=== PATIENT | female | born 1950 | race Caucasian/White ===

== ENCOUNTER → 2017-03-04 | Outpatient (CLI) | payer MEDICARE, OTHER ==
[~2017-03-04] MED LIST: ASP81TEC PO; DILT240T6 PO; GADOBUTROL 10 MMOL/10 ML (GADAVIST) VIAL IV ONE; IBP200T PO; MULT-608 PO; PARO10TA2 PO
[2017-03-04 09:33] LABS: MEAN PLATELET VOLUME 9.4 FL (7.4-10.4); RED BLOOD COUNT 4.55 10^6/uL (4.35-5.85); RED CELL DISTRIBUTION WIDTH 13.9 % (10.0-14.5); WHITE BLOOD COUNT 5.2 10^3/uL (4.3-11.0)
[2017-03-04 10:34] LABS: BLOOD UREA NITROGEN 11 MG/DL (7-18); BUN/CREATININE RATIO 15; CREATININE SERUM 0.73 MG/DL (0.60-1.30); GFR ESTIMATED > 60
--- NOTE | 2017-03-04 12:18 | Diagnostic Imaging Report ---
PROCEDURE: US Carotid Duplex Bilateral. TECHNIQUE: Multiple real-time grayscale images were obtained over the carotid arteries in various projections bilaterally. Additional duplex Doppler and color Doppler images were also obtained. INDICATION: Pulsatile tinnitus. FINDINGS: Grayscale images demonstrate minimal intimal plaque in the carotid arteries. Color Doppler demonstrate patency of the common, internal and external carotid arteries. The vertebral arteries demonstrate antegrade flow on both sides. Peak systolic velocities in the right ICA are 71, 96 and 128 cm/s and on the left side 72, 79 and 110 cm/s. ICA/CCA ratios are up to 1.3 on the right and up to 1.2 on the left. IMPRESSION: Minimal plaque along the internal carotid arteries. The estimated underlying stenosis is in the range of 0-25% bilaterally. Dictated by: Dictated on workstation # [id number]
--- NOTE | 2017-03-04 12:36 | Diagnostic Imaging Report ---
PROCEDURE: MR angiography of the brain without the use of contrast. TECHNIQUE: 3D [id number] non contrast enhanced MR angiography of the head was performed. A source data was reformatted into rotating MIP projections. INDICATION: Pulsatile tinnitus. FINDINGS: The internal carotid arteries, the MCA and SIMON arteries are patent with no significant stenosis or occlusion. No aneurysm. The basilar artery, the posterior cerebral artery bilaterally are patent. The basilar artery is essentially continuation of the left vertebral artery. The right vertebral artery terminates into the right PICA and a tiny distal branch that contributes to the perfusion of the basilar artery. No aneurysm is seen. IMPRESSION: No high-grade stenosis, occlusion or aneurysm is seen in the central intracranial vessels. Dictated by: Dictated on workstation # [id number]
--- NOTE | 2017-03-04 14:49 | Diagnostic Imaging Report ---
PROCEDURE: MR imaging of the brain with and without contrast. TECHNIQUE: Multiplanar, multisequence MR imaging of the brain was performed with and without contrast. INDICATION: Tinnitus. 8 mL of Gadovist is administered intravenously. FINDINGS: There is no diffusion restriction to suggest an acute infarct or other diffusion abnormality. There are minimal periventricular and deep white matter hypodensities compatible with chronic microvascular ischemic changes. No mass effect, edema or enhancing masses seen in the brain or extra-axial space. The brainstem and the cerebellum appear unremarkable. The pituitary gland is normal in size. No hypothalamic or pineal region mass. No hydrocephalus. The internal auditory canals and inner ear structures appear symmetric. No cerebellopontine angle mass is identified. In the occipital region of the skull there is a 2 x 1.7 x 2.8 cm exophytic lesion to the left of the midline with low intensity margins. IMPRESSION: 1. Mild white matter findings are likely secondary to chronic microvascular ischemic changes, frequently seen at the patient's age. No acute infarct or enhancing mass. 2. A 2.8 cm exophytic lesion from the occipital aspect of the skull with well-defined low intensity margins may relate to an osteochondroma. Better evaluation with CT scan of the head is recommended. Dictated by: Dictated on workstation # [id number]
== END ==
LOC: RAD 09:14
PROVIDERS: ATTEND Otolaryngology Otolaryngology/Facial Plastic Surgery
DX: H93.A1 Pulsatile tinnitus, right ear (principal); I65.23 Occlusion and stenosis of bilateral carotid arteries; M89.9 Disorder of bone, unspecified
CPT/HCPCS: 36415; 70544; 70553; 82565; 84443; 84520; 85027; 85652; 93880

== ENCOUNTER → 2017-03-13 | Outpatient (CLI) | payer MEDICARE, OTHER ==
[~2017-03-13] MED LIST changes: +CATHETER FLUSH 10 ML SYR IV PRN; -GADOBUTROL 10 MMOL/10 ML (GADAVIST) VIAL IV ONE; +IOHEXOL 350 MG/ML 100 ML (OMNIPAQUE 350) VIAL IV ONE; +NS 100 ML (IVPB) BAG IV ONE
[2017-03-13 09:20] LABS: BLOOD UREA NITROGEN 15 MG/DL (7-18); BUN/CREATININE RATIO 20; CREATININE SERUM 0.74 MG/DL (0.60-1.30); GFR ESTIMATED > 60
--- NOTE | 2017-03-13 10:26 | Diagnostic Imaging Report ---
CLINICAL INDICATION: Patient with bump on occipital bone for 20 years. No complaints. No history of cancer. EXAM: Head CT without and with 80 cc of Omnipaque 350 IV contrast. Coronal reformatted images were created. COMPARISON: MRI of the brain/IACs dated 03/04/2017. FINDINGS: There is no evidence of acute cerebral infarct, intracranial hemorrhage, or gross mass effect. There is no abnormal IV contrast enhancement. There is normal barrera-white matter distinction. The brain parenchymal volume appears appropriate for patient's age. There is no significant midline shift or herniation. The lumbee of Neal vascular structures show no gross abnormality as visualized. There is no evidence of hydrocephalus. The basal cisterns are unremarkable. There is a pedunculated bony excrescence extending from the left of midline occipital bone and projects into the suboccipital soft tissue. This bony excrescence area measures 11 mm x 19 mm by roughly 28 mm. There is a marked cancellous type bone appearance centrally and a cortical bone in the periphery. This is suspected to represent an osteochondroma. There is no adjacent soft tissue fat stranding or adjacent soft tissue mass. Otherwise, the skull, extracranial soft tissue, and orbits are unremarkable. The paranasal sinuses are unremarkable. 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 2: Otherwise, unremarkable CT scan of the brain. Dictated by: Dictated on workstation # [id number]
== END ==
LOC: RAD 08:38
PROVIDERS: ATTEND Otolaryngology Otolaryngology/Facial Plastic Surgery
DX: H93.19 Tinnitus, unspecified ear (principal); D16.4 Benign neoplasm of bones of skull and face
CPT/HCPCS: 36415; 70470; 82565; 84520

== ENCOUNTER 2020-05-25 11:54 | Day surgery (SDC) | payer MEDICARE, OTHER ==
[~2020-05-25] VITALS: Ht 167.6 cm; Wt 83.5 kg
[~2020-05-25 11:54] MED LIST changes: -CATHETER FLUSH 10 ML SYR IV PRN; +CHOL200059 PO; +CYAN250T PO; +DILT240T10 PO; -IOHEXOL 350 MG/ML 100 ML (OMNIPAQUE 350) VIAL IV ONE; +MULT-567 PO; -NS 100 ML (IVPB) BAG IV ONE; +OMEG100032 PO; +PARO20TA5 PO; +UBID100C17 PO
[2020-05-25] MEDS ORDERED: LACTATED RINGERS 1,000 ML IV ONE (11:57)
--- NOTE | 2020-05-25 12:06 | Progress Note-Pre Operative ---
Pre-Operative Progress Note H&P Reviewed The H&P was reviewed, patient examined and no changes noted. Date Seen by Provider: May 25, 2020 Time Seen by Provider: 12:00 Date H&P Reviewed: May 25, 2020 Time H&P Reviewed: 12:00 Pre-Operative Diagnosis: screening JOSE ANGEL Rodriguez MD May 25, 2020 12:06
--- NOTE | 2020-05-25 12:07 | Discharge Inst-Surgical ---
D/C Lap Instructions-HOA Follow Up Activity as tolerated High Fiber Diet 25g or more per day Avoid Alcohol, Caffeine, Spicy Ayden and Acid foods. Drink 64 fluid oz or more of fluids per day. Symptoms to Report: Fever over 101 degree F, Nausea/Vomiting If any problems/questions: Contact your physician or go to Emergency Room JOSE ANGEL CAMARA MD May 25, 2020 12:07
[2020-05-25 12:10] VITALS: BP 135/73
[2020-05-25] MEDS ORDERED: LACTATED RINGERS 1,000 ML IV PRN (12:15)
[2020-05-25] MEDS ORDERED: LIDOCAINE JELLY 2% 6 ML SYRINGE MM PRN (12:15)
[2020-05-25] MEDS ORDERED: ONDANSETRON 4 MG/2 ML (SDV) Z0FRAN IVP PRN (12:15)
[2020-05-25] MEDS ORDERED: ACETAMINOPHEN 325 MG TABLET PO PRN (12:15)
[2020-05-25] MEDS ORDERED: morphine INJ 10 MG/ML 1ML (SYR OR VIAL) IVP PRN ×2 (12:15)
[2020-05-25] MEDS ORDERED: PROPOFOL INJECTION 50 ML IV ONE (12:55)
[2020-05-25] MEDS ORDERED: LIDOCAINE JELLY 2% 6 ML SYRINGE ONE (13:14)
[2020-05-25] MEDS ORDERED: MIDAZOLAM 2 MG/2 ML (VERSED) VIAL ONE (13:15)
[2020-05-25 13:40] VITALS: BP 104/53
--- NOTE | 2020-05-25 13:43 | Anesthesia-General Post-Op ---
MAC Patient Condition Mental Status/LOC: Same as Preop Cardiovascular: Satisfactory Nausea/Vomiting: Absent Respiratory: Satisfactory Pain: Controlled Complications: Absent Post Op Complications Complications None Follow Up Care/Instructions Patient Instructions None needed. Anesthesiology Discharge Order Discharge Order Patient is doing well, no complaints, stable vital signs, no apparent adverse anesthesia problems. No complications reported per nursing. AJ KNOWLES CRNA May 25, 2020 13:43
[2020-05-25 14:10] VITALS: BP 132/59
[2020-05-25 14:20] VITALS: BP 132/59
--- NOTE | 2020-05-25 14:29 | Progress Note-Post Operative ---
Post-Operative Progess Note Surgeon (s)/Editor House Organ (s) Surgeon JOSE ANGEL CAMARA MD Editor House Organ: none Pre-Operative Diagnosis screening colo Post-Operative Diagnosis chronic stage 2-3 ext and int hemorrhoids. Procedure & Operative Findings Date of Procedure 05/25/20 Procedure Performed/Findings colonoscopy. Anesthesia Type mac Estimated Blood Loss Estimated blood loss (mL): minimal Specimens/Packing Specimens Removed none JOSE ANGEL CAMARA MD May 25, 2020 14:29
--- OUTSIDE RECORDS SUMMARY | 2020-05-25 15:44 | XMS REPORT ---
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 Encounters Encounter Date Encounter Type Encounter Diagnosis Care Provider Facility Start: Patient encounter JOSE ANGEL CAMARA MD [facility] 05-25-2020 procedure [facility] Start: Discharged Recurring MD MANJU [facility] 05-22-2020 Work Phone: [place] [phone] End: 05-22-2020 Start: Patient encounter JOSE ANGEL CAMARA MD [facility] 05-22-2020 [facility] End: 05-22-2020 Start: Patient encounter JOSE ANGEL CAMARA MD [facility] 05-17-2020 [facility] Start: Patient encounter [facility] 08-02-2019 procedure [facility] ([id number]) Start: Patient encounter ELVIA LOVELL MD Not Avail able ([id number]) 03-13-2017 procedure Start: Patient encounter ELVIA LOVELL MD [facility] 03-13-2017 [facility] Start: Patient encounter ELVIA LOVELL MD Not Avail able ([id number]) 03-04-2017 procedure Start: Patient encounter ELVIA LOVELL MD [facility] 03-04-2017 [facility] Start: Patient encounter VICTORIANO STANTON Not Karen ilable ([id number]) 05-06-2012 procedure Start: Patient encounter VICTORIANO WILD MD, FACC Not [facility] ([id number]) 05-05-2012 procedure Start: Patient encounter ELVIA LOVELL MD Not Avail able ([id number]) 02-24-2012 procedure End: 02-25-2012 Encounter for other JOSE ANGEL CAMARA MD [facility] examination ([id number]) Medical Equipment The data below is from unstructured sourcesNo Medical Equipment Information available Goals Date Patient Goal Desired Activity/St ate Immunizations The data below is from unstructured sourcesNo Immunization Information Available Interventions No Information Medications Current Medications Medication Drug Dates Sig Sig (Original) Class(es) (Normalized) Cholecalciferol Vitamin D Cholecalciferol (Vi tamin D3) Active 50 (1 source) ORAL Daily coenzyme q10 100 mg oral Ubidecarenone Active 100 ORAL Daily capsule (1 source) 24 hr dilTIAZem Calcium Diltiazem Hcl Activ e 240 ORAL Daily hydrochloride 240 mg Channel extended release oral Virgie tablet (2 sources) End: 05-17-2020 Diltiazem Hcl Discontinued 240 ORAL Daily May 17, 2020 Multivitamin preparation Multivitamin Active 1 OR AL Daily (1 source) [place]-3/Dha/Epa/Fish Oil [place]-3/Dha/Epa/Fish Oil Active 1000 (1 source) ORAL Daily PARoxetine hydrochloride Serotonin Paroxetine Hc l Active 20 ORAL Daily 20 mg oral tablet Reuptake (2 sources) Inhibitor End: 05-17-2020 Paroxetine Hcl Discontinued 10 ORAL Daily May 17, 2020 vitamin b 12 0.25 mg Vitamin Cyanocobalamin (V itamin B-12) Active 250 oral tablet B12 ORAL Daily (1 source) Completed/Discontinued Medications Medication Drug Dates Sig Sig (Original) Class(es) (Normalized) Aspirin Platelet End: Aspirin Discont inued 81 ORAL Daily May (1 source) Aggregatio 05-17-20202019 n Inhibitor, Nonsteroid al Anti-infla mmatory Drug Ibuprofen Nonsteroid End: Ibuprofen Disco ntinued 400 ORAL Twice A (1 source) al 05-17-2020 Day May 17 020 Anti-infla mmatory Drug Multivitamins End: Multivitamins Disco ntinued 1 ORAL Daily (1 source) 05-17-2020 May 17, 2020 Payers Date Payer Normalized Payer [id number] Plan of Treatment Date Care Activity Detail Author Coronavirus Ab [place] [facility] [Units/volume] in [facility] ([id number]) Problems Active Problems Problem Problem Date Last Documented Episodic/Chr Provider Classificati Recorded Date onic on Disorders of Other and unspecified Chronic ALI SANTOYO MMAD lipid hyperlipidemia [facility] metabolism (2 sources) Immunization Contact with and (suspected) 05-24-2020 Episodic TAKAAKI KIDO s and exposure to other viral MD screening communicable diseases for infectious disease (2 sources) Malaise and Other fatigue ; Translations: 05-23-2020 Episodic ALI TORRI fatigue [Other malaise and fatigue] [facility] (7 sources) Occlusion or Occlusion and stenosis of bilateral 05-23-2020 Ch ronemil GAN stenosis of carotid arteries [place] precerebral arteries (5 sources) Other and Benign neoplasm of bones of skull 05-23-2020 Episo dic ELVIA unspecified and face [place] benign neoplasm (3 sources) Other bone Disorder of bone, unspecified 05-23-2020 Episodic ELVIA disease and [place] musculoskele scott deformities (5 sources) Other ear Pulsatile tinnitus, right ear 05-23-2020 Episodic ELVIA and sense [place] organ disorders (5 sources) Other ear Tinnitus, unspecified ear 05-23-2020 Episodic ELVIA and sense [place] organ disorders (3 sources) Other lower Other respiratory abnormalities Episodic ALI TORRI respiratory [facility] disease (2 sources) Residual Obstructive sleep apnea Chronic ERAN AEL codes; (adult)(pediatric) [place] unclassified (1 source) Thyroid Hypothyroidism, unspecified 05-23-2020 Chronic ELVIA disorders [place] (5 sources) Past or Other Problems Problem Problem Date Last Documented Episodic/Chr Provider Classificati Recorded Date onic on Other Other specified symptoms and signs Episodic ELVIA circulatory involving the circulatory and [place] disease respiratory systems (1 source) Procedures The data below is from unstructured sourcesNo procedure information available. Results Test Name Value Interpreta Reference Facilit Date tion Range y Time not yet categorized on 2020-05-25 NAME: KARLI SALAZAR Michelle ~MED REC#: [id number] Invalid PENDING ~ ~PHYSICIAN: AJ Rico FISH CUTTER ~MAC ~Patient tion Code N [facility] Condition ~Mental Status/LOC: Same as Preop ( ) ~Cardiovascular: Satisfactory ~Nausea/Vomiting: Absent ~Respiratory: Satisfactory ~Pain: Controlled ~Complications: Absent ~ ~Post Op Complications ~Complications ~None ~ ~F ollow Up Care/Instructions ~Patient Instructi ons ~None needed. ~ ~Anesthesiology Dischar ge Order ~Discharge Order ~Patient is jeff arreaga well, no complaints, stable vital signs , no apparent adverse anesthesia problems. ~ ~No complications reported per nursing. ~ ~ ~ ~AJ KNOWLES CRNA May 25, 2020 13 :43 ~ ~ ~<Created by AJ KNOWLES FISH CUTTER> ~<Electronically signed by AJ SELLERS FISH CUTTER> 05/25/20 1343 ~ ~ NAME: KARLI SALAZAR ~MED REC#: [id number] Invalid PENDING ~ ~PHYSICIAN: JOSE ANGEL Smith MD ~Post-Operative Progess Note tion Code N [facility] ~Surgeon (s)/Director Of Sports Medicine (s) ~Surgeon ~JOSE ANGEL (0000 0) [place] ~Director Of Sports Medicine: none ~ ~Pre-Operati ve Diagnosis ~screening colo ~ ~Post-Opera tive Diagnosis ~ ~chronic stage 2-3 ext and int hemorrhoids. ~ ~Procedure Operative Fin dings ~Date of Procedure ~05/25/20 ~Procedure Performed/Findings ~colonoscopy. ~Anest hesia Type ~mac ~ ~Estimated Blood Loss ~Marley mated blood loss (mL): minimal ~ ~Specimens/P acking ~Specimens Removed ~none ~ ~ ~ ~LEONARD CAMARA MD May 25, 2020 14:29 ~ ~ ~<Created by JOSE ANGEL CAMARA MD> ~<Electronically mireya d by JOSE ANGEL CAMARA MD> 05/25/20 1429 ~ ~ laboratory on 2020-05-22 Coronavirus Ab Qn Negative Invalid Negative PENDING 05-22 (S) Interpreta LOCATIO 020 tion Code N KHS 04:00-0 ([id number]) 400 Social History Date Type Detail Facility Start: Tobacco smoking status NHIS Never smoked tobac co [place] [facility] 05-17-2020 (finding) [facility] ([id number]) Start: Rarely Uses [place] [facility] 05-17-2020 [facility] ([id number]) Start: Never a Smoker [place] [facility] 05-17-2020 [facility] ([id number]) Start: No [place] [facility] 05-17-2020 [facility] ([id number]) Start: Sex Assigned At Female Isauro n [facility] 1950 [facility] ([id number]) Vital Signs The data below is from unstructured sources Vital Reading Result Col lection Date/Time Functional Status The data below is from unstructured sourcesNo Functional Status information available Mental Status The data below is from unstructured sourcesNo Mental Status Information Available Evaluation note Note Date & Note Facility Type Evaluation No Assessments Information Available A scension Via note [facility] ([id number]) Clinical Note Note Date & Note Facility Type Note NAME: KARLI SALAZAR ~MED REC#: [id number] ~ACCOUNT#: PENDING LOCATION [facility] [id number] ~PHYSICIAN: JOSE ANGEL CAMARA MD ~Pre-Operati ve Progress ([id number]) Note ~H P Reviewed ~The H P was reviewe d, patient examined and no changes noted. ~Date Seen by Provider: May 25, 2020 ~Time Seen by Provider: 12:00 ~Date H P Reviewed: May 25, 2020 ~Time H P Reviewed: 12:00 ~Pre-Operative Diagnosi s: screening colo ~ ~ ~ ~JOSE ANGEL CAMARA MD May 25, 2020 12:06 ~ ~ ~<Created by JOSE ANGEL CAMARA MD> ~<Electronically signed by JOSE ANGEL CAMARA MD> 05/25/20 1206 ~ ~ Advance Directives Advance Directive Response Recorded Date/Time Advance Directives No Ju ly 2019 2:41pm Organ Donor Yes April 9:04am Resuscitation Status Full Code May 17, 2020 2:41pm Additional Source Comments This clinical document has been generated using [employer] software that has been certified by the Office of the National Coordinator for Health Information Technology (ONC 15.99.04.3023.[id number]) and the National Committee for Certified Surgical Technician (NCQA, as an eMeasure certified technology). FOR RECORDS PERTAINING TO PATIENTS WHO ARE OR HAVE BEEN ENROLLED IN A CHEMICAL D EPENDENCY/SUBSTANCE ABUSE PROGRAM, SOME INFORMATION MAY BE OMITTED. This clinica l summary was aggregated from multiple sources. Caution should be exercised in using it in the provision of clinical care. This summary normalizes information from multiple sources, and as a consequence, information in this document may ma terially change the coding, format and clinical context of patient data. In nargis tion, data may be omitted in some cases. CLINICAL DECISIONS SHOULD BE BASED ON T HE PRIMARY CLINICAL RECORDS. [facility] [employer] [facility]. provides no warranty or guara ntee of the accuracy or completeness of information in this document.The followi ng information is based on time limited clinical information
--- OUTSIDE RECORDS SUMMARY | 2020-05-25 15:45 | XMS REPORT | Continuity of Care Document ---
Author Organization Unknown Address Unknown Phone Unavailable Allergies Active Description Code Type Severity Reaction Onset Reported/Identified Relationship to Patient Clinical Status Yes No Known Drug Allergies [id number] Drug Allergy Unknown N/A 05/06/2012 Medications There is no data. Problems Date Dx Coded Attending Type Code Diagnosis Diagnosed By 10/15/1021 HOA KAPLAN, JOSE ANGEL Ot Z20.82 8 CONTACT W AND EXPOSURE TO OTH VIRAL COMM 02/25/2012 Ot 327.23 OBS TRUCTIVE SLEEP APNEA (ADULT) (PEDIATR 05/22/2015 Ot 272.4 05/22/2015 Ot 780.79 05/22/2015 Ot 786.09 05/22/2015 Ot 272.4 05/22/2015 Ot 780.79 05/22/2015 Ot 786.09 02/27/2017 Ot 272.4 HYPE RLIPIDEMIA NEC/NOS 02/27/2017 Ot 780.79 OTH MALAISE FATIGUE 02/27/2017 Ot 786.09 RES PIRATORY ABNORM NEC 02/27/2017 Ot 272.4 HYPE RLIPIDEMIA NEC/NOS 02/27/2017 Ot 780.79 OTH MALAISE FATIGUE 02/27/2017 Ot 786.09 RES PIRATORY ABNORM NEC 03/04/2017 Ot 272.4 HYPE RLIPIDEMIA NEC/NOS 03/04/2017 Ot 780.79 OTH MALAISE FATIGUE 03/04/2017 Ot 786.09 RES PIRATORY ABNORM NEC 03/04/2017 Ot 272.4 HYPE RLIPIDEMIA NEC/NOS 03/04/2017 Ot 780.79 OTH MALAISE FATIGUE 03/04/2017 Ot 786.09 RES PIRATORY ABNORM NEC 03/04/2017 ELVIA LOVELL MD Ot R09.89 OTH SYMPTOMS AND SIGNS INVOLVING THE CIR 03/19/2017 ELIVA LOVELL MD Ot D16 .4 BENIGN NEOPLASM OF BONES OF SKULL AND FA 03/19/2017 ELVIA LOVELL MD Ot H93.19 TINNITUS, UNSPECIFIED EAR 04/06/2017 ELVIA LOVELL MD Ot D16 .4 BENIGN NEOPLASM OF BONES OF SKULL AND FA 04/06/2017 ELVIA LOVELL MD P Ot H93.19 TINNITUS, UNSPECIFIED EAR 04/17/2017 ELVIA LOVELL MD P Ot E03 .9 HYPOTHYROIDISM, UNSPECIFIED 04/17/2017 ELVIA LOVELL MD P Ot H93.A1 PULSATILE TINNITUS, RIGHT EAR 04/17/2017 ELVIA LOVELL MD P Ot I65.23 OCCLUSION AND STENOSIS OF BILATERAL DIAZ 04/17/2017 ELVIA LOVELL MD P Ot M89 .9 DISORDER OF BONE, UNSPECIFIED 04/17/2017 ELVIA LOVELL MD P Ot R53.83 OTHER FATIGUE 05/12/2017 ELVIA LOVELL MD P Ot E03 .9 HYPOTHYROIDISM, UNSPECIFIED 05/12/2017 ELVIA LOVELL MD P Ot H93.A1 PULSATILE TINNITUS, RIGHT EAR 05/12/2017 ELVIA LOVELL MD P Ot I65.23 OCCLUSION AND STENOSIS OF BILATERAL DIAZ 05/12/2017 ELVIA LOVELL MD P Ot M89 .9 DISORDER OF BONE, UNSPECIFIED 05/12/2017 ELVIA LOVELL MD P Ot R53.83 OTHER FATIGUE 05/11/2020 ELVIA LOVELL MD P Ot E03 .9 HYPOTHYROIDISM, UNSPECIFIED 05/11/2020 ELVIA LOVELL MD P Ot H93.A1 PULSATILE TINNITUS, RIGHT EAR 05/11/2020 ELVIA LOVELL MD P Ot I65.23 OCCLUSION AND STENOSIS OF BILATERAL DIAZ 05/11/2020 ELVIA LOVELL MD P Ot M89 .9 DISORDER OF BONE, UNSPECIFIED 05/11/2020 ELVIA LOVELL MD P Ot R53.83 OTHER FATIGUE 05/11/2020 ELVIA LOVELL MD P Ot D16 .4 BENIGN NEOPLASM OF BONES OF SKULL AND FA 05/11/2020 ELVIA LOVELL MD Ot H93.19 TINNITUS, UNSPECIFIED EAR 05/21/2020 JOSE ANGEL CAMARA MD Ot Z01.81 8 ENCOUNTER FOR OTHER PREPROCEDURAL EXAMIN 05/22/2020 JOSE ANGEL CAMARA MD Ot Z01.81 8 ENCOUNTER FOR OTHER PREPROCEDURAL EXAMIN 05/22/2020 JOSE ANGEL CAMARA MD Ot Z01.81 8 ENCOUNTER FOR OTHER PREPROCEDURAL EXAMIN 05/22/2020 ELVIA LOVELL MD Ot E03 .9 HYPOTHYROIDISM, UNSPECIFIED 05/22/2020 ELVIA LOVELL MD P Ot H93.A1 PULSATILE TINNITUS, RIGHT EAR 05/22/2020 ELVIA LOVELL MD P Ot I65.23 OCCLUSION AND STENOSIS OF BILATERAL DIAZ 05/22/2020 ELVIA LOVELL MD Ot M89 .9 DISORDER OF BONE, UNSPECIFIED 05/22/2020 ELVIA LOVELL MD Ot R53.83 OTHER FATIGUE 05/22/2020 ELVIA LOVELL MD Ot D16 .4 BENIGN NEOPLASM OF BONES OF SKULL AND FA 05/22/2020 ELVIA LOVELL MD Ot H93.19 TINNITUS, UNSPECIFIED EAR 05/22/2020 JOSE ANGEL CAMARA MD Ot Z01.81 8 ENCOUNTER FOR OTHER PREPROCEDURAL EXAMIN 05/22/2020 JOSE ANGEL CAMARA MD Ot Z01.81 8 ENCOUNTER FOR OTHER PREPROCEDURAL EXAMIN 05/23/2020 ELVIA LOVELL MD Ot E03 .9 HYPOTHYROIDISM, UNSPECIFIED 05/23/2020 ELVIA LOVELL MD Ot H93.A1 PULSATILE TINNITUS, RIGHT EAR 05/23/2020 ELVIA LOVELL MD Ot I65.23 OCCLUSION AND STENOSIS OF BILATERAL DIAZ 05/23/2020 ELVIA LOVELL MD Ot M89 .9 DISORDER OF BONE, UNSPECIFIED 05/23/2020 ELVIA LOVELL MD Ot R53.83 OTHER FATIGUE 05/23/2020 ELVIA LOVELL MD Ot D16 .4 BENIGN NEOPLASM OF BONES OF SKULL AND FA 05/23/2020 ELVIA LOVELL MD Ot H93.19 TINNITUS, UNSPECIFIED EAR 05/24/2020 ELVIA LOVELL MD Ot E03 .9 HYPOTHYROIDISM, UNSPECIFIED 05/24/2020 ELVIA LOVELL MD Ot H93.A1 PULSATILE TINNITUS, RIGHT EAR 05/24/2020 ELVIA LOVELL MD Ot I65.23 OCCLUSION AND STENOSIS OF BILATERAL DIAZ 05/24/2020 ELVIA LOVELL MD Ot M89 .9 DISORDER OF BONE, UNSPECIFIED 05/24/2020 ELVIA LOVELL MD Ot R53.83 OTHER FATIGUE 05/24/2020 ELVIA LOVELL MD Ot D16 .4 BENIGN NEOPLASM OF BONES OF SKULL AND FA 05/24/2020 ELVIA LOVELL MD Ot H93.19 TINNITUS, UNSPECIFIED EAR Procedures There is no data. Results Test Result Range Automated blood complete blood count (he mogram) panel - 03/04/17 09:29 Blood leukocytes automated count (number/volume) 5.2 10*3/uL 4.3-11.0 Blood erythrocytes automated count (number/volume) 4.55 10*6/uL 4.35-5.85 Venous blood hemoglobin measurement (mass/volume) 13.4 g/dL 11.5-16.0 Blood hematocrit (volume fraction) 40 % 35-52 Automated erythrocyte mean corpuscular volume 88 [ foz_us] 80-99 Automated erythrocyte mean corpuscular h emoglobin (mass per erythrocyte) 30 pg 25-34 Automated erythrocyte mean corpuscular h emoglobin concentration measurement (mass/volume) 34 g/dL 32-36 Automated erythrocyte distribution width ratio 13. 9 % 10.0- 14.5 Automated blood platelet count (count/volume) 333 10*3/uL 130-400 Automated blood platelet mean volume measurement 9.4 [foz_us] 7.4-10.4 Erythrocyte sedimentation rate by evelin gren method - 03/04/17 09:29 Erythrocyte sedimentation rate by westergren method 10 mm 0- 30 THYROID STIMULATING HORMONE - 03/04/17 0 9:29 THYROID STIMULATING HORMONE 1.62 u[iU]/mL 0.35-4.94 [id number] - 03/04/17 09:29 Serum or plasma urea nitrogen measurement (mass/volume ) 11 mg/dL 7-18 Serum or plasma creatinine measurement (mass/volume) 0.73 mg/dL 0.60-1.30 Serum or plasma urea nitrogen/creatinine mass ratio 15 NRG Serum or plasma creatinine measurement w ith calculation of estimated glomerular filtration rate > NRG [id number] - 03/13/17 08:58 Serum or plasma urea nitrogen measurement (mass/volume ) 15 mg/dL 7-18 Serum or plasma creatinine measurement (mass/volume) 0.74 mg/dL 0.60-1.30 Serum or plasma urea nitrogen/creatinine mass ratio 20 NRG Serum or plasma creatinine measurement w ith calculation of estimated glomerular filtration rate > NRG Coronavirus SARS-CoV-2 SO 2018 - 0 08:00 Coronavirus Ab [Units/volume] in Serum Negative Negative Encounters ACCT No. Visit Date/Time Discharge Status Pt. Type Provider Facility Loc./Unit Complaint [id number] 05/22/2020 05:40:00 020 10:22:00 DIS Outpatient JOSE ANGEL CAMARA MD Via [facility] SCREENING [id number] 03/13/2017 08:38:00 017 23:59:59 CLS Outpatient ELVIA LOVELL MD [facility] RAD PULSATILE TINNITIS [id number] 03/04/2017 09:14:00 017 23:59:59 CLS Outpatient ELVIA LOVELL MD [facility] RAD RT PULSATILE TINNITUS [id number] 05/25/2020 13:00:00 P EN Preadmit JOSE ANGEL CAMARA MD [facility] ENDO SCREENING [id number] 05/06/2012 07:01:00 Document Registration [id number] 05/05/2012 12:40:00 Document Registration [id number] 02/24/2012 19:30:00 Document Registration
--- NOTE | 2020-05-25 23:53 | OPERATIVE REPORT ---
DATE OF SERVICE: 05/25/2020 ATTENDING PRIMARY CARE PHYSICIAN: Jerome Goodwin MD PREOPERATIVE DIAGNOSIS: Screening colonoscopy. POSTOPERATIVE DIAGNOSES: Chronic between stage II and III external and internal hemorrhoids. The remainder of the rectum and colon were normal. PROCEDURE: Colonoscopy. SURGEON: Jose Angel Camara MD ANESTHESIA: Monitored anesthesia care. ESTIMATED BLOOD LOSS: Minimal. FINDINGS: Same as postoperative diagnoses. DISPOSITION: The patient tolerated the procedure well. INDICATIONS: The patient is a 69-year-old female in need of a screening colonoscopy. She states that she does have some issues with constipation and hard well-formed stools and has also had issues with hemorrhoidal flareups in the past as well as rectal bleeding. She does not report any family history of colon cancer. DESCRIPTION OF PROCEDURE: The patient was brought to the endoscopy suite, laid in the left lateral decubitus position. After adequate IV pain and sedative medications and monitored anesthesia care, a digital rectal examination was performed, which revealed chronic between stage II and III external and internal hemorrhoids with some mild active edema, no bleeding. Normal sphincter tone was felt and there were no palpable masses. The endoscope was then intubated to the anus and rectum gently insufflated. The endoscope was then advanced to the valves of [place] of the rectum with no polyps or any neoplasms identified. We then proceeded to the sigmoid colon where no diverticulosis identified. The endoscope was then advanced to the remainder of the descending, transverse and ascending colon to the cecum. These segments were normal. There were no polyps or any neoplasms identified throughout the colon or rectum. The endoscope was then slowly withdrawn while taking a second look and suctioning of residual air with no additional findings. The patient tolerated the procedure well. We will recommend medical management with high fiber diet with at least 25 grams of fiber daily as well as significant amounts of water to promote soft stools on a daily basis and to prevent any further propagation of the hemorrhoids as well as to keep the hemorrhoids asymptomatic. If she is asymptomatic, she does not need another colonoscopy for another 10 years. Job ID: [id number] DocumentID: [id number] Dictated Date: 05/25/2020 14:08:24 Color Specialist Date: 05/25/2020 23:52:48 Dictated By: JOSE ANGEL CAMARA MD
== END 2020-05-25 14:20 | disposition home or self-care (01) ==
LOC: ENDO 11:54
PROVIDERS: ATTEND Surgery
DX: Z12.11 Encounter for screening for malignant neoplasm of colon (principal); K64.1 Second degree hemorrhoids; F41.9 Anxiety disorder, unspecified; F32.9 Major depressive disorder, single episode, unspecified; E78.00 Pure hypercholesterolemia, unspecified; E53.8 Deficiency of other specified B group vitamins; R00.0 Tachycardia, unspecified

== ENCOUNTER 2021-05-10 10:44 | Outpatient (CLI) | payer MEDICARE, OTHER ==
[~2021-05-10] VITALS: Ht 167.7 cm; Wt 83.5 kg
[~2021-05-10 10:44] MED LIST changes: -CYAN250T PO; +CYAN250T3 PO
[2021-05-10] MEDS ORDERED: diphenhydrAMINE 50 MG/ML INJ (BENADRYL) IV PRN (11:00)
[2021-05-10] MEDS ORDERED: EPINEPHrine INJECTION 1 MG/ML AMP IM PRN (11:00)
[2021-05-10] MEDS ORDERED: [UNRECOGNIZED DRUG - OTHER] IV ONE (11:00)
[2021-05-10 11:27] VITALS: BP 135/67
[2021-05-10 12:10] VITALS: BP 127/63
== END 2021-05-10 12:25 | disposition home or self-care (01) ==
LOC: INFUSION 10:44
PROVIDERS: ATTEND Nurse Practitioner Family
DX: Z23 Encounter for immunization (principal); U07.1 COVID-19

== ENCOUNTER → 2022-06-09 | Outpatient (CLI) | payer MEDICARE, OTHER | LOC: CARD 12:50 | PROVIDERS: ATTEND Nurse Practitioner Family | DX: I35.0 Nonrheumatic aortic (valve) stenosis (principal) | CPT/HCPCS: 93306 ==

== ENCOUNTER → 2022-07-18 | Outpatient (CLI) | payer MEDICARE, OTHER ==
--- NOTE | 2022-07-18 14:32 | Diagnostic Imaging Report ---
Indication: Dyspnea PA and lateral chest obtained at 0132 p.m. Heart and mediastinal silhouette are normal in appearance. The lungs are clear. There is no pneumothorax or pleural fluid. IMPRESSION: Negative chest. Dictated by: Dictated on workstation # [id number]
== END ==
LOC: CARD 13:09
PROVIDERS: ATTEND Internal Medicine
DX: R00.2 Palpitations (principal); R06.00 Dyspnea, unspecified
CPT/HCPCS: 71046

== ENCOUNTER → 2022-11-05 | Outpatient (CLI) | payer MEDICARE, OTHER | LOC: RAD 14:28 | PROVIDERS: ATTEND Internal Medicine | DX: Z12.31 Encounter for screening mammogram for malignant neoplasm of breast (principal) | CPT/HCPCS: 77063; 77067 ==